=== PATIENT | male | born 1950 | race Hispanic/Latino ===

== ENCOUNTER → 2024-10-11 | Outpatient (CLI) | payer OTHER, MEDICAID ==
[~2024-10-11] MED LIST: CETI-89 PO; FENO145T26 PO; LISI2.5T13 PO; METF-446 PO; SITA100T12 PO; TERB250T89 PO; TYL3 PO
--- NOTE | 2024-10-12 15:25 | HMCIMG ---
EXAM: MR Lumbar Spine Without Intravenous Contrast. CLINICAL HISTORY: Lumbar intervertebral disc displacement. TECHNIQUE: Magnetic resonance images of the lumbar spine in multiple planes. CONTRAST: None. COMPARISON: CT dated 05/20/2009. FINDINGS: For this examination, spinal levels were labeled assuming five [id number], lumbar-type vertebrae, with the inferior labeled L5. No acute fracture. Normal lordotic curvature. Multilevel spondylosis is evident by marginal osteophytes and facet joint arthropathy. Multilevel disc desiccation noted. Mild degenerative disc height reduction at the L3-L4 level. Mild L4-L5 facet joint synovitis. Normal vertebral body and disc heights. Normal marrow signal of the vertebrae. Conus medullaris terminates at the T12 level. No abnormal epidural masses. Suspected dilatation of the CBD. Individual spinal levels are described as follows: T12-L1: No disc bulge or herniation. No neural foraminal, lateral recess, or spinal canal stenosis. L1-L2: No disc bulge or herniation. No neural foraminal, lateral recess, or spinal canal stenosis. L2-L3: No disc bulge or herniation. No neural foraminal, lateral recess, or spinal canal stenosis. L3-L4: 3 mm disc osteophyte complex bulge causing mild indentation on the anterior thecal sac and mild bilateral foraminal narrowing. No lateral recess stenosis. L4-L5: 3 mm disc osteophyte complex bulge, ligamentum flavum thickening, and facet joint arthropathy causing mild canal narrowing, moderate to severe left lateral recess narrowing with compression of the traversing left L5 nerve root, and mild bilateral foraminal narrowing. L5-S1: 3 mm disc osteophyte complex bulge and facet joint arthropathy causing mild indentation on the anterior thecal sac, mild bilateral lateral recess narrowing with indentation on the traversing bilateral S1 nerve roots, and mild to moderate bilateral foraminal narrowing with indentation on the exiting bilateral L5 nerve roots. IMPRESSION: Mild multilevel spondylosis. Mild degenerative disc height reduction at the L3-L4 level. Mild L4-L5 facet joint synovitis. Mild indentation on the anterior thecal sac and mild bilateral foraminal narrowing at the L3-L4 level. Mild canal narrowing, moderate to severe left lateral recess narrowing with compression of the traversing left L5 nerve root, and mild bilateral foraminal narrowing at the L4-L5 level. Mild indentation on the anterior thecal sac, mild bilateral lateral recess narrowing with indentation on the traversing bilateral S1 nerve roots, and mild to moderate bilateral foraminal narrowing with indentation on the exiting bilateral L5 nerve roots at the L5-S1 level. Interval worsening of the spondylosis noted. /[place]
== END | disposition home or self-care (01) ==
LOC: RAH 08:40
PROVIDERS: ATTEND Student in an Organized Health Care Education/Training Program
DX: M47.816 Spondylosis without myelopathy or radiculopathy, lumbar region (principal); M51.26 Other intervertebral disc displacement, lumbar region; M65.88 Other synovitis and tenosynovitis, other site; M48.061 Spinal stenosis, lumbar region without neurogenic claudication; M51.86 Other intervertebral disc disorders, lumbar region; M48.07 Spinal stenosis, lumbosacral region; M25.78 Osteophyte, vertebrae; M51.369 Other intervertebral disc degeneration, lumbar region without mention of lumbar back pain or lower extremity pain; M51.379 Other intervertebral disc degeneration, lumbosacral region without mention of lumbar back pain or lower extremity pain
CPT/HCPCS: 72148